=== PATIENT | male | born 1935 | race Caucasian/White ===

== ENCOUNTER 2017-03-17 06:32 | Day surgery (SDC) | payer MEDICARE ==
--- NOTE | 2017-03-12 10:53 | HP ---
CC: Dr. Montgomery; [facility] * HISTORY AND PHYSICAL: DATE OF ADMISSION: 03/17/17 [facility] CHIEF COMPLAINT: Blurring of vision. HISTORY OF PRESENT ILLNESS: This 81-year-old white male is scheduled with Dr. John Montgomery at the [facility] for right cataract extraction under local anesthesia with monitored anesthesia care on 03/17/17. The left eye will be done 03/24/17. PAST MEDICAL HISTORY: The patient is under the care of Dr. Bipin Mcintosh. He has a history of hypertension and hyperlipidemia. CURRENT MEDICATIONS: 1. Lisinopril and HCTZ 20/12.5 daily. 2. Simvastatin 20 mg daily. 3. Ibuprofen 800 mg b.i.d. for arthritis symptoms. 4. He also occasionally uses Veramyst nasal spray, 1 spray q. nostrils b.i.d. p.r.n. 5. Michelle 180 mg p.r.n. ALLERGIES: No known drug allergies. FAMILY HISTORY: Father of leukemia. Mother, sister, and maternal aunt all have schizophrenia. SOCIAL HISTORY: The patient is a , lives in the [facility]. He is retired. Alcohol: Admitted to 1 to 2 beers per week. Tobacco: He has a history of 3 pack a day for 16 years, quit at age 29. REVIEW OF SYSTEMS: He has been having runny clear nose and itchy eyes that are runny from the allergies recently. He says that he has decreased range of motion of his shoulders bilaterally chronically and has some numbness of his bilateral index, middle, and thumb fingers; chronic carpal tunnel release. Otherwise, review of systems is negative to detailed questioning. The patient denies any dyspnea, cough, chest pain, palpitations, or edema symptoms. PHYSICAL EXAMINATION GENERAL: This 81-year-old white male is alert, pleasant, and cooperative. VITAL SIGNS: Height 5 feet 10 inches; weight 202, stable; blood pressure 136/66 ; pulse 60. HEENT: Eyes: Pupils round and reactive to light. Ears: Normal. He does have cerumen bilaterally, worse on the right than the left. Mouth: Tongue in the midline. He has no teeth, no dentures. Pharynx is clear. NECK: Fair range of motion, no adenopathy. Thyroid benign. BACK: Normal curvature, no tenderness noted of his spine or CVA areas. LUNGS: Clear. No wheezing or coughing with deep breathing or forced expiration. HEART: Rhythm is regular. Apical pulse 60 beats per minute. No murmurs. EKG shows normal sinus rhythm, within normal limits. BREASTS: Nipples are erect. No crusting or drainage. No palpable masses or tenderness. ABDOMEN: Obesity, has an obvious small umbilical hernia. No discomfort, reduces easily. Active bowel sounds. Abdomen is otherwise soft and nontender. No obvious masses or organomegaly; however, this exam is difficult related to the patient's obesity. EXTREMITIES: He does have decreased range of motion of his shoulders bilaterally. He ambulates independently with some trace edema bilaterally, worse on the left than the right. SKIN: In good condition. No worrisome lesions noted. IMPRESSION: The patient is medically stable and cleared for his upcoming cataract surgery. Because Dr. Mcintosh's office will be closing as he is retiring, the patient has opted to follow up with [facility]. MONIQUE PETERS, BUCK [id number]/[facility]PS #: [id number] FLORIAN
[~2017-03-17 06:32] MED LIST: Acetaminophen TAB* 325 MG PO PRN; Buffered Lidocaine 0.9% SYRIN* 5 ML/SYR SYRINGE INTRADERM ONE
[2017-03-17] MEDS ORDERED: fentaNYL* 50 MCG/ML 2 ML VIAL (100 MCG VIAL) ONE (07:22)
[2017-03-17] MEDS ORDERED: Midazolam* 1 MG/ML 2 ML VIAL (2 MG) ONE (07:23)
[2017-03-17 08:30] VITALS: BP 117/72
[2017-03-17] MEDS ORDERED: Neomycin/Polymy/Dex OPTH.SUSP* MAXITROL 0.1% 5 ML ONE (10:43)
[2017-03-17] MEDS ORDERED: acetaZOLAMIDE TAB* 250 MG ONE (10:43)
[2017-03-17] MEDS ORDERED: Lidocaine 1% MPF* 2 ML VIAL ONE (10:43)
[2017-03-17] MEDS ORDERED: Lidocaine 2% EPI 1:200000 MPF* 20 ML VIAL ONE (10:43)
[2017-03-17] MEDS ORDERED: Povidone Iodine 5% OPTH* 30 ML BTL ONE (10:43)
[2017-03-17] MEDS ORDERED: Phenylephrine 2.5% OPTH.SOL* 2 ML BTL ONE (10:43)
[2017-03-17] MEDS ORDERED: Proparacaine 0.5% OPHTH.SOL* 15 ML BTL ONE (10:43)
[2017-03-17] MEDS ORDERED: Flurbiprofen 0.03% OPTH.SOL* 2.5 ML BTL ONE (10:43)
[2017-03-17] MEDS ORDERED: Cyclopentolate 1% OPTH.SOL* 2 ML BTL ONE (10:43)
[2017-03-17] MEDS ORDERED: Buffered Lidocaine 0.9% SYRIN* 5 ML/SYR SYRINGE ONE (10:43)
--- NOTE | 2017-03-17 16:43 | OP ---
DATE OF OPERATION: 03/17/17 - MERGED WITH [facility] DATE OF : 37 SURGEON: John Montgomery MD PREOPERATIVE DIAGNOSIS: Cataract, right eye. POSTOPERATIVE DIAGNOSIS: Cataract, right eye. OPERATIVE PROCEDURE: Phacoemulsification, right eye with IOL. DESCRIPTION OF PROCEDURE: The patient was brought to the operating room after being given 1/2% Alcaine with epinephrine drops in the preoperative area. The eye was prepped and draped in the usual sterile fashion. Sterile drape and eyelid speculum were placed. Again, topical 1/2% Alcaine with epinephrine was given. A paracentesis incision was made at the 9 o'clock position with the No.75 blade. Clear cornea incision 2.2 x 2.2-mm was created at the 12 o'clock position starting at the anterior limbus using the 2.2-mm keratome. The anterior chamber was irrigated with 0.4 mL of 1% non-preservative intracameral lidocaine and filled with DisCoVisc. A capsulorrhexis was completed using the cystotome and the Utrata forceps. Hydrodissection was performed with balanced salt solution. The lens nucleus was removed with the Phacoemulsification handpiece without incident. Cortex was removed with the irrigation-aspiration handpiece. The capsular bag was re-inflated using DisCoVisc and an [id number] implant was inserted with the shooter, oriented to the 14 degree axis. Horizontal reference ayoub were made with the patient in seated position in the preoperative area. The irrigation-aspiration handpiece was used to remove all residual DisCoVisc. The eye was refilled with balanced salt solution and the wound checked and found to be watertight. Topical Maxitrol drops were given. [id number]/[facility] #: [id number] [facility]ENTER[facility]ight[facility]
== END 2017-03-17 08:46 | disposition home or self-care (01) ==
LOC: OREAST 06:32
PROVIDERS: ATTEND Specialist
DX: H25.811 Combined forms of age-related cataract, right eye (principal); Z87.891 Personal history of nicotine dependence; I10 Essential (primary) hypertension; E78.5 Hyperlipidemia, unspecified
CPT/HCPCS: A9270-GY; J2250; J3010; V2787

== ENCOUNTER 2017-03-24 10:41 | Day surgery (SDC) | payer MEDICARE ==
[2017-03-24] MEDS ORDERED: Midazolam* 1 MG/ML 2 ML VIAL (2 MG) ONE (12:26)
[2017-03-24 13:17] VITALS: BP 122/68
[2017-03-24] MEDS ORDERED: Lidocaine 2% EPI 1:200000 MPF* 20 ML VIAL ONE (14:47)
[2017-03-24] MEDS ORDERED: acetaZOLAMIDE TAB* 250 MG ONE (14:47)
[2017-03-24] MEDS ORDERED: Lidocaine 1% MPF* 2 ML VIAL ONE (14:47)
[2017-03-24] MEDS ORDERED: Buffered Lidocaine 0.9% SYRIN* 5 ML/SYR SYRINGE ONE (14:47)
[2017-03-24] MEDS ORDERED: Cyclopentolate 1% OPTH.SOL* 2 ML BTL ONE (14:47)
[2017-03-24] MEDS ORDERED: Phenylephrine 2.5% OPTH.SOL* 2 ML BTL ONE (14:47)
[2017-03-24] MEDS ORDERED: Flurbiprofen 0.03% OPTH.SOL* 2.5 ML BTL ONE (14:47)
[2017-03-24] MEDS ORDERED: Neomycin/Polymy/Dex OPTH.SUSP* MAXITROL 0.1% 5 ML ONE (14:47)
[2017-03-24] MEDS ORDERED: Povidone Iodine 5% OPTH* 30 ML BTL ONE (14:47)
[2017-03-24] MEDS ORDERED: Proparacaine 0.5% OPHTH.SOL* 15 ML BTL ONE (14:47)
--- NOTE | 2017-03-25 10:35 | OP ---
DATE OF OPERATION: 03/24/17 - [facility] DATE OF : 37 SURGEON: John Montgomery MD. PREOPERATIVE DIAGNOSIS: Cataract, left eye. POSTOPERATIVE DIAGNOSIS: Cataract, left eye. OPERATIVE PROCEDURE: Phacoemulsification left eye with IOL. DESCRIPTION OF PROCEDURE: The patient was brought to the operating room after being given 1/2% Alcaine with epinephrine drops in the preoperative area. The eye was prepped and draped in the usual sterile fashion. Sterile drape and eyelid speculum were placed. Again, topical 1/2% Alcaine with epinephrine was given. A paracentesis incision was made at the 3 o'clock position with the No.75 blade. Clear cornea incision 2.2 x 2.2-mm was created at the 6 o'clock position starting at the anterior limbus using the 2.2-mm keratome. The anterior chamber was irrigated with 0.4 mL of 1% non-preservative intracameral lidocaine and filled with DisCoVisc. A capsulorrhexis was completed using the cystotome and the Utrata forceps. Hydrodissection was performed with balanced salt solution. The lens nucleus was removed with the Phacoemulsification handpiece without incident. Cortex was removed with the irrigation-aspiration handpiece. The capsular bag was re-inflated using DisCoVisc and an [id number] 20.5 Implant was inserted with the shooter. The pupil was only 4 mm so a Malyugin ring was used to dilate the pupil prior to capsulorrhexis, removed after insertion of the lens. The irrigation-aspiration handpiece was used to remove all residual DisCoVisc. The eye was refilled with balanced salt solution and the wound checked and found to be watertight. Topical Maxitrol drops were given. Indication for complex cataract surgery: Pupil abnormalities requiring pupil dilation device. [id number]/[facility] #: [id number] MTDLeighton
== END 2017-03-24 13:07 | disposition home or self-care (01) ==
LOC: OREAST 10:41
PROVIDERS: ATTEND Specialist
DX: H25.812 Combined forms of age-related cataract, left eye (principal); H21.562 Pupillary abnormality, left eye; Z87.891 Personal history of nicotine dependence; I10 Essential (primary) hypertension; E78.5 Hyperlipidemia, unspecified
CPT/HCPCS: A9270-GY; J2250; V2632

== ENCOUNTER 2017-07-20 10:45 | Day surgery (SDC) | payer MEDICARE ==
--- NOTE | 2017-07-13 09:11 | HP ---
PREOPERATIVE HISTORY AND PHYSICAL: DATE OF ADMISSION/SURGERY: 07/20/17 [facility] DATE OF OFFICE VISIT/ENCOUNTER: 07/12/17 ATTENDING SURGEON: Arianna Cowart MD * (DICTATED BY CINTIA BARBER) PROCEDURE: Left wrist carpal tunnel release. CHIEF COMPLAINT: Bilateral hand numbness and tingling. HISTORY OF PRESENT ILLNESS: This is an 81-year-old male, who complains of numbness and tingling in his bilateral hands, it is worse on the right than the left. He has had it for many years, he estimates about 4 to 6 years and it has gotten worse over time from doing a lot of hammering and lifting. He uses ibuprofen when his symptoms are at their worst and this gives him minimal relief. He has not tried using a wrist brace. He occasionally is awakened at night by his symptoms. He has not had any nerve conduction studies, but clinically presents with bilateral carpal tunnel syndrome. He denies neck pain. The patient reports that the tips of his fingers are numb all the time. The little finger is not involved on either hand. The patient is right hand dominant. He would like to proceed initially with a left wrist carpal tunnel release and will likely follow that with a right wrist carpal tunnel release. PAST MEDICAL HISTORY: 1. Hypertension. 2. Hypercholesterolemia. PAST SURGICAL HISTORY: Bilateral cataract surgery in March 2017. CURRENT MEDICATIONS: 1. Ibuprofen 800 mg t.i.d. p.r.n. 2. Lisinopril/hydrochlorothiazide 20/12.5 mg daily. 3. Simvastatin 20 mg daily. ALLERGIES: No known drug allergies. FAMILY MEDICAL HISTORY: Significant for cancer/leukemia. SOCIAL HISTORY: The patient is retired from [employer]. He is a former smoker. He reports that he smoked from age 15 to age 25 up to 2 packs per day. He denies recreational drug use and drinks alcohol on infrequent occasions. REVIEW OF SYSTEMS: General: Negative for fevers, chills, or night sweats. No known anesthesia problems. HEENT: Negative for headache, lightheadedness, or syncopal episodes. Integumentary: Negative for abrasions, lesions, or open wounds. Cardiothoracic: Negative for hypertension, chest pain, palpitations, or edema. Pulmonary: Positive for seasonal allergies, negative for shortness of breath with exertion, chronic cough or COPD. GI: Negative for nausea, vomiting , diarrhea, constipation, or GERD. : Negative for nocturia, urinary frequency, urgency, history of UTIs, or kidney problems. Musculoskeletal: Positive for current complaint. Negative for chronic or intermittent back pain or history of fractures. Neurologic: Negative for history of seizure, stroke or epilepsy. Endocrine: Negative for diabetes or thyroid issues. Hematologic: Negative for easy bruising, anemia, excessive bleeding, or history of DVT. Infectious Disease: Negative for history of MRSA, hepatitis C, or HIV. PHYSICAL EXAMINATION GENERAL: Well-developed, well-nourished, 81-year-old male, in no acute distress. VITAL SIGNS: Height 5 feet 6 inches, weight 198 pounds, pulse rate 72, blood pressure 126/84. HEENT: Normocephalic, atraumatic. Pupils are equal, round, and reactive to light and accommodation. Extraocular movements are intact. Throat is clear. NECK: Supple. No palpable lymph nodes. PULMONARY: Lungs are clear to auscultation bilaterally. No wheezes, rales, or rhonchi. CARDIOVASCULAR: Regular rate and rhythm. S1 and S2. No murmurs, rubs, or gallops. No edema. ABDOMEN: Positive bowel sounds, soft, nontender. NEUROLOGIC: Alert and oriented x3. Cranial nerves II through XII are intact. MUSCULOSKELETAL: On exam of bilateral hands, he has thenar wasting bilaterally , worse on the right than on the left, but fairly good thumb strength with abduction. He has obvious degenerative changes in his fingers as well, which limits his ability to make a full fist. His wrist motion is not painful. He has a positive Tinel's sign at the median nerve bilaterally. Decreased sensation at the tips of his fingers, but not involving the small fingers. IMPRESSION: Bilateral carpal tunnel syndrome. PLAN: The patient is scheduled to undergo a left wrist carpal tunnel release with Dr. Cowart on 07/20/17. He will return to the office 10 to 14 days postop for followup and suture removal. A prescription for Ultracet was e-scribed to the patient's pharmacy for postoperative pain management. CINTIA BARBER [id number]/[facility] #: [id number] MTDD
[~2017-07-20 10:45] MED LIST changes: -Acetaminophen TAB* 325 MG PO PRN
[2017-07-20] MEDS ORDERED: Lidocaine 1% INJ* 10 MG/ML 30 ML SDV ONE (11:50)
[2017-07-20] MEDS ORDERED: Midazolam* 1 MG/ML 2 ML VIAL (2 MG) ONE (12:09)
[2017-07-20] MEDS ORDERED: fentaNYL* 50 MCG/ML 2 ML VIAL (100 MCG VIAL) ONE (12:09)
[2017-07-20] MEDS ORDERED: Propofol* 10 MG/ML 20 ML BTL IV PUSH ONE (12:15)
[2017-07-20 12:35] VITALS: BP 121/89
--- NOTE | 2017-07-21 10:35 | OP ---
DATE OF OPERATION: 07/20/17 [facility] DATE OF : 37 SURGEON: Arianna Cowart MD CREDIT REPORT CHECKER: CINTIA Valverde ANESTHESIOLOGIST: Du Molina DO ANESTHESIA: Local MAC. PRE-OP DIAGNOSIS: Left carpal tunnel syndrome. POST-OP DIAGNOSIS: Left carpal tunnel syndrome. OPERATIVE PROCEDURE: Left carpal tunnel release. ESTIMATED BLOOD LOSS: Zero. TOURNIQUET TIME: About 5 minutes. INDICATION FOR PROCEDURE: Luciano is an 81-year-old male with numbness and tingling in the median nerve distribution of his left hand. He presents for left carpal tunnel release. DESCRIPTION OF PROCEDURE: The patient was brought to the operating room, was given a sedation anesthetic, and a local infiltration of 10 cc of 1% plain lidocaine in the palm of his left hand. The skin of his left hand and forearm was prepped and draped in the usual sterile fashion. The hand and forearm were exsanguinated and the tourniquet elevated to 250 mmHg. A longitudinal incision was made in the palm in line with the ring finger. We dissected through the subcutaneous tissue down to the transverse carpal ligament. The ligament was divided sharply with a knife and then more proximally with the scissors. The nerve was dissected free from the surrounding tissue and there was an area of moderate compression at the mid portion of the ligament. The wound was irrigated and the skin edges reapproximated with 4-0 nylon suture. The wound was dressed with Xeroform, 4x4, Webril, and Mario wrap. The patient tolerated the procedure well and was brought to the recovery room in good condition. [id number]/[facility] #: [id number] [facility]
== END 2017-07-20 13:03 | disposition home or self-care (01) ==
LOC: OREAST 10:45
PROVIDERS: ATTEND Orthopaedic Surgery
DX: G56.02 Carpal tunnel syndrome, left upper limb (principal); I10 Essential (primary) hypertension; E78.00 Pure hypercholesterolemia, unspecified
CPT/HCPCS: J2001; J2250; J2704; J3010